=== PATIENT | male | born 1970 | race Caucasian/White ===

== ENCOUNTER → 2017-11-17 | Day surgery (SDC) | payer OTHER ==
[~2017-11-17] VITALS: Ht 182.8 cm; Wt 90.7 kg
[~2017-11-17] MED LIST: ADDERALL 30 MG30 MG PO; CLEOCIN HCL150 MG PO; HYDROCODONE BIT1 T11 PO; MOTRIN800 MG PO; MULTI-DAY VITA1 EACH PO; VIT C-BIOFLAVO1 EACH PO
--- NOTE | ~2017-11-17 | O ---
[place], [place] OPERATIVE NOTE NAME: NEDA GARCIA UNIT #: [id number] ROOM: DOCTOR: SHARON VENEGAS MD BIRTHDATE: [birth year] DOS: 11/17/2017 PREOPERATIVE DIAGNOSIS: Cataract, right eye. POSTOPERATIVE DIAGNOSIS: Cataract, right eye. OPERATION: Extracapsular cataract extraction by phacoemulsification with posterior chamber intraocular lens implantation, right eye. ANESTHESIA: Monitored standby. OPERATIVE FINDINGS AND PROCEDURE: 2% Xylocaine topical anesthetic gel was applied to the eye in the preop area. The patient was taken to the operating room and prepped and draped in the standard fashion for sterile intraocular surgery. A time out procedure was performed verifying correct patient, correct site and corrects lens with Juventino Venegas M.D. The operating microscope was swung into position and the lid speculum was inserted. Using a Dipti paracentesis blade, a paracentesis was made through clear cornea. Viscoelastic was used to fill the anterior chamber. Using a metal keratome a 2.4 mm self-sealing clear corneal cataract incision was made temporally at the limbus. Using a pre-bent 25 gauge cystotome needle, a standard continuous curvilinear capsulorrhexis was performed. The anterior capsule was removed with forceps. The lens nucleus was hydrodissected and phacoemulsified in the posterior chamber. Cortical material was removed with the irrigation aspiration hand piece and the posterior capsule was then polished with a curet under irrigation. The posterior chamber and capsular bag were filled with viscoelastic. A posterior chamber intraocular lens manufactured by: [employer], Model #[id number], and 18.5 diopters in strength were then inserted into the posterior chamber and within the capsular bag using the lens cartridge and injector system. Viscoelastic was removed using the irrigation aspiration handpiece. The anterior chamber was filled with balanced salt solution through the paracentesis. Both the paracentesis site and cataract incisions were hydrated with BSS and verified to be water-tight and self-sealing. Cefuroxime 1 mg/0.1 mL was injected into the anterior chamber through the paracentesis site. The incision checked to be water-tight using a Weck-Deisy sponge. The integrity of the cataract wound and ocular tension were checked. Lid speculum and drapes were removed. The patient was transferred from the operating room to the recovery room in satisfactory condition. [place], [place] OPERATIVE NOTE NAME: NEDA GARCIA UNIT #: [id number] ROOM: DOCTOR: SHARON VENEGAS MD BIRTHDATE: [birth year] SHARON VENEGAS MD CM:OPRECORD:OPERATIVE NOTE [id number] SHARON VENEGAS MD 11/17/17 1358 interface
[2017-11-17 12:05] VITALS: BP 123/87
[2017-11-17 13:31] VITALS: BP 118/85
[2017-11-17 13:45] VITALS: BP 123/86
[2017-11-17 13:58] VITALS: BP 122/81
== END | disposition home or self-care (01) ==
LOC: SDC 11-15 12:30
DX: H25.811 Combined forms of age-related cataract, right eye (principal); F98.8 Other specified behavioral and emotional disorders with onset usually occurring in childhood and adolescence; Z98.890 Other specified postprocedural states; Z79.899 Other long term (current) drug therapy

== ENCOUNTER 2023-08-02 15:32 | Emergency (ER) | payer SELFPAY ==
[~2023-08-02] VITALS: Ht 182.8 cm; Wt 93.0 kg
[2023-08-02 16:20] LABS: BASO % 0.4 % (0.0-1.0); EOS # 0.2 10*3/uL (0.0-0.4); EOS % 1.6 % (1.0-4.0); HEMATOCRIT 47.8 % (42.0-52.0); LYMPH # 1.3 10*3/uL (1.3-4.4); LYMPH % 14.5 % (27.0-41.0); MEAN CELL VOLUME 92.8 fl (80.0-94.0); MEAN CORPUSCULAR HGB 29.9 pg (27.0-31.0); MEAN CORPUSCULAR HGB CONC 32.2 g/dl (33.0-37.0); MEAN PLATELET VOLUME 9.3 fl (9.6-12.3); MONO # 0.6 10*3/uL (0.1-1.0); MONO % 5.9 % (3.0-9.0); NEUT # 7.2 10*3/uL (2.3-7.9); NEUT % 77.2 % (47.0-73.0); PLATELET COUNT AUTOMATED 302 10*3/uL (130-400); RED BLOOD COUNT 5.15 10*6/uL (4.50-5.90); RED CELL DISTRI WIDTH 12.6 % (0-14.5); WHITE BLOOD COUNT 9.3 10*3/uL (4.8-10.8)
[2023-08-02 16:42] LABS: ALKALINE PHOSPHATASE 78 U/L (46-116); BUN 17 mg/dl (9-23); CHLORIDE 108 mmol/L (98-107); POTASSIUM 3.6 mmol/L (3.4-5.1); SGPT/ALT 33 U/L (5-49)
[2023-08-02 18:09] LABS: BILIRUBIN Negative (Negative); BLOOD Trace-Lysed (Negative); CLARITY Clear (Clear); COLOR Yellow (Yellow); GLUCOSE Negative (Negative); KETONE Negative (Negative); LEUKO ESTERASE Negative (Negative); NITRITE Negative (Negative); PH 5.5 (4.5-8.0); SPECIFIC GRAVITY >= 1.030 (1.001-1.030)
[2023-08-02 18:52] LABS: MUCOUS 2+; WBC 0-2 wbc/hpf (0-5)
[2023-08-02] MEDS ORDERED: AMOX-CLAV 875-1 EACH PO (22:51)
[2023-08-02] MEDS ORDERED: VIBRAMYCIN100 MG PO (22:51)
== END 2023-08-02 23:05 | disposition home or self-care (01) ==
LOC: ED 15:32
PROVIDERS: Nurse Practitioner Family
DX: J18.9 Pneumonia, unspecified organism (principal); R31.9 Hematuria, unspecified; Z98.890 Other specified postprocedural states; Z98.41 Cataract extraction status, right eye

== ENCOUNTER 2024-06-06 21:10 | Emergency (ER) | payer OTHER ==
[~2024-06-06] VITALS: Ht 182.8 cm; Wt 93.0 kg
[~2024-06-06 21:10] MED LIST changes: +AMOX-CLAV 875-1 EACH PO; +VIBRAMYCIN100 MG PO
[2024-06-06] MEDS ORDERED: methylPREDNISolone sod succ 125 MG VIAL IM ONE (21:40)
[2024-06-06] MEDS ORDERED: Albuterol Sulf/Ipratropium 3 ML VIAL NEB ONE (21:40)
[2024-06-06 21:49] LABS: BASO # 0.1 10*3/uL (0.0-0.1); BASO % 0.4 % (0.0-1.0); EOS # 0.1 10*3/uL (0.0-0.4); EOS % 0.8 % (1.0-4.0); HEMATOCRIT 40.3 % (42.0-52.0); LYMPH % 16.9 % (27.0-41.0); MEAN CELL VOLUME 93.3 fl (80.0-94.0); MEAN CORPUSCULAR HGB 30.3 pg (27.0-31.0); MEAN CORPUSCULAR HGB CONC 32.5 g/dl (33.0-37.0); MEAN PLATELET VOLUME 9.1 fl (9.6-12.3); MONO # 1.1 10*3/uL (0.1-1.0); MONO % 9.6 % (3.0-9.0); NEUT # 8.5 10*3/uL (2.3-7.9); NEUT % 71.9 % (47.0-73.0); PLATELET COUNT AUTOMATED 286 10*3/uL (130-400); RED BLOOD COUNT 4.32 10*6/uL (4.50-5.90); RED CELL DISTRI WIDTH 12.8 % (0-14.5); WHITE BLOOD COUNT 11.9 10*3/uL (4.8-10.8)
[2024-06-06 22:05] LABS: BUN 21 mg/dl (9-23); CHLORIDE 109 mmol/L (98-107); CPK 551 U/L (34-171); POTASSIUM 3.5 mmol/L (3.4-5.1)
[2024-06-06] MEDS ORDERED: ZITHROMAX250 MG PO (23:33)
[2024-06-06] MEDS ORDERED: PREDNISONE20 M1 PO (23:33)
== END 2024-06-06 23:41 | disposition home or self-care (01) ==
LOC: ED 21:10
PROVIDERS: Internal Medicine
DX: J20.8 Acute bronchitis due to other specified organisms (principal); R74.8 Abnormal levels of other serum enzymes; Z98.890 Other specified postprocedural states

== ENCOUNTER → 2024-11-20 | Outpatient (CLI) | payer OTHER ==
[~2024-11-20] MED LIST changes: +PREDNISONE20 M1 PO; +ZITHROMAX250 MG PO
== END | disposition home or self-care (01) ==
LOC: CARD 15:22
PROVIDERS: ATTEND Social Worker Clinical
DX: Z51.81 Encounter for therapeutic drug level monitoring (principal); Z79.899 Other long term (current) drug therapy

== ENCOUNTER 2025-01-07 14:16 | Emergency (ER) | payer OTHER ==
[~2025-01-07] VITALS: Ht 182.8 cm; Wt 93.0 kg
[2025-01-07] MEDS ORDERED: Lidocaine Hydrochloride 2% 10 ML AMP SC ONE (15:40)
[2025-01-07] MEDS ORDERED: Bacitracin Zinc 14 GM TUBE T ONE (15:40)
[2025-01-07] MEDS ORDERED: CEPHALEXIN 500 MG CAP PO ONE (15:40)
[2025-01-07] MEDS ORDERED: CEPHALEXIN500 M1 PO (15:52)
== END 2025-01-07 16:36 | disposition home or self-care (01) ==
LOC: ED 14:16
DX: S51.811A Laceration without foreign body of right forearm, initial encounter (principal); Z79.899 Other long term (current) drug therapy; W26.8XXA Contact with other sharp object(s), not elsewhere classified, initial encounter; Y93.89 Activity, other specified; Y92.89 Other specified places as the place of occurrence of the external cause; Y99.8 Other external cause status